=== PATIENT | female | born 1995 | race Caucasian/White ===

== ENCOUNTER 2018-11-13 07:11 | Emergency (ER) | payer SELFPAY ==
[2018-11-13] MEDS ORDERED: LORazepam 1 MG TAB PO ONE (07:26)
--- NOTE | 2018-11-13 07:30 | EDPHY ---
H & P Stated Complaint: N/V, ANXIETY Time Seen by Provider: 11/13/18 07:26 HPI/ROS: CHIEF COMPLAINT: Hyperventilating, hand spasms HISTORY OF PRESENT ILLNESS: This is a 23-year-old female with a history of depression and anxiety for which she takes venlafaxine. She has been feeling anxious for the past 7-8 hours. She is aware that she is hyperventilating. She has developed carpopedal spasm and states that her hands hurt. She is requesting an oxygen mask to breathe into with the time of my interview. She also tells me that she has had an upper respiratory infection, consistent with a common cold, for the past couple of weeks. She vomited once last week and last night vomited several times. She denies abdominal pain. She has not had fever. No dysuria, constipation, or diarrhea. REVIEW OF SYSTEMS: A ten system review of systems was performed and is negative with the exception of the items mentioned in the HPI. Past medical history: Depression and anxiety Social history: She is a student. Denies use of illicit drugs. General Appearance: Alert. Vital signs reviewed. She is hyperventilating at the time of my interview. Eyes: Pupils equal and round, no conjunctival injection, no discharge. Anicteric. ENT, Mouth: Mucous membranes are moist, no oropharyngeal erythema or edema. Neck: No lymphadenopathy, supple. Respiratory: Lungs are clear to auscultation; no wheezes, rales, or rhonchi. Tachypneic. Cardiovascular: Tachycardic; no murmur, rub, or gallop. Gastrointestinal: Abdomen is soft and nontender, no masses or organomegaly, bowel sounds normal. Skin: Warm and dry, no rashes on exposed skin, normal color. Tattoo right upper thigh laterally. Back: No CVAT. Extremities: No lower extremity edema, no calf tenderness or swelling. Bilateral carpopedal spasm. Neurological: Alert and oriented. Moving all four extremities easily and equally. Psychiatric: Normal affect. - Personal History Current Tetanus/Diphtheria Vaccine: Unsure - Medical/Surgical History Hx Asthma: No Hx Chronic Respiratory Disease: No Hx Diabetes: No Hx Cardiac Disease: No Hx Renal Disease: No Hx Cirrhosis: No Hx Alcoholism: No Hx HIV/AIDS: No Hx Splenectomy or Spleen Trauma: No Other PMH: ANXIETY - Social History Smoking Status: Never smoked Constitutional: Initial Vital Signs Temperature (C) 36.6 C 11/13/18 07:21 Heart Rate 130 H 11/13/18 07:21 Respiratory Rate 32 H 11/13/18 07:21 Blood Pressure 127/81 H 11/13/18 07:21 O2 Sat (%) 100 11/13/18 07:21 O2 Delivery Mode Room Air Allergies/Adverse Reactions: No Known Allergies Allergy (Unverified 11/13/18 07:21) Home Medications: Medication Instructions Recorded Ondansetron Odt [Zofran Odt 4 mg 4 mg PO Q4 PRN #10 tab 11/13/18 (RX)] Venlafaxine 25MG (*) 11/13/18 Medical Decision Making ED Course/Re-evaluation: Non-rebreather mask placed for hyperventilation. She was given 1 mg sublingual Ativan. Her respiratory rate and feeling a panic improved. At 7:45 a.m. I was notified that she was experiencing lower abdominal pain. On examination her abdomen is soft and nontender. She did not want additional anxiolytics medication. She has agreed to 1 L IV fluid and Toradol. Subsequent re-evaluation found her to again be hyperventilating with carpopedal spasm. She was given a dose of 1 mg Ativan IV. Following this medication she slept for a bit and when she awoke she was feeling calmer and more comfortable. She requested Ativan to take home, but I have advised her that she should receive a prescription for this type of medication from her primary care provider/psychiatrist. She will continue with her Effexor. Presentation and physical findings are consistent with panic/anxiety attack. I do not suspect respiratory problems such as infection or PE. She has not had chest pain and I do not suspect a cardiac problem. There is no evidence or history of trauma; pneumothorax highly unlikely. I do not recommend further emergency department evaluation. Her abdomen remains soft and nontender in the emergency department. She did not have vomiting. I do not think that this is an intra-abdominal problem. Differential Diagnosis: I considered a differential diagnosis that includes but is not limited to anxiety, hyperventilation, PE, pericarditis, gastritis, cholecystitis, urinary tract infection. - Data Points Medications Given: Discontinued Medications Sodium Chloride (Ns) 1,000 mls @ 0 mls/hr IV EDNOW ONE; Wide Open PRN Reason: Protocol Stop: 11/13/18 07:58 Last Admin: 11/13/18 08:03 Dose: 1,000 mls Ketorolac Tromethamine (Toradol) 15 mg IVP ONCE ONE Stop: 11/13/18 07:58 Last Admin: 11/13/18 08:03 Dose: 15 mg Lorazepam (Ativan) 1 mg PO EDNOW ONE Stop: 11/13/18 07:27 Last Admin: 11/13/18 07:30 Dose: 1 mg Lorazepam (Ativan Injection) 1 mg IVP EDNOW ONE Stop: 11/13/18 08:08 Last Admin: 11/13/18 08:26 Dose: 1 mg Departure - Departure Disposition: Home, Routine, Self-Care Clinical Impression: Anxiety Vomiting Qualifiers: Vomiting type: unspecified Vomiting Intractability: non-intractable Nausea presence: with nausea Qualified Code(s): R11.2 - Nausea with vomiting, unspecified Condition: Good Instructions: Acute Nausea and Vomiting (ED), Anxiety (ED) Additional Instructions: Continue your current medications. Referrals: Jeimy Toscano MD [[facility] [place] Primary Care Provider] - As per Instructions Prescriptions: Ondansetron Odt [Zofran Odt 4 mg (RX)] 4 mg PO Q4 PRN #10 tab PRN Reason: nausea
[2018-11-13] MEDS ORDERED: NS 1,000 ML IV ONE (07:57)
[2018-11-13] MEDS ORDERED: KETOROLAC 15 MG/1 ML SDV IVP ONE (07:57)
[2018-11-13] MEDS ORDERED: LORazepam 2 MG/ML INJ IVP ONE (08:07)
[2018-11-13 10:42] VITALS: BP 98/53
== END 2018-11-13 10:46 | disposition home or self-care (01) ==
DX: F41.9 Anxiety disorder, unspecified (principal); R29.0 Tetany; R11.2 Nausea with vomiting, unspecified; R10.30 Lower abdominal pain, unspecified; F32.9 Major depressive disorder, single episode, unspecified; E86.9 Volume depletion, unspecified
CPT/HCPCS: 96374; J1885; J2060